=== PATIENT | female | born 1935 | race Caucasian/White ===

== ENCOUNTER → 2016-11-03 | Outpatient (CLI) | payer MEDICARE, OTHER ==
[~2016-11-03] MED LIST: ASCO25TA PO; CHEL50TA PO; CINN500C9 PO; FLON0.054; GLUC500C5 PO; LISI-538 PO; MAGN250T9 PO; MULTCAP PO; OMEG300C3 PO; TRAM50TA2 PO; VITA200016 PO; [UNRECOGNIZED DRUG - CODE] PO
== END ==
LOC: M ADAMS 16:04
PROVIDERS: ATTEND Nurse Practitioner Adult Health
DX: I10 Essential (primary) hypertension (principal); R19.7 Diarrhea, unspecified
CPT/HCPCS: 80053; 82150; 83036; 83690; 85027; 87507; G0463

== ENCOUNTER → 2016-11-03 | Outpatient (REF) | payer MEDICARE, OTHER ==
[2016-11-03 21:08] LABS: MEAN CORPUSCULAR HEMOGLOBIN 30.8 pg (27.0-33.0); MEAN CORPUSCULAR HGB CONC 33.9 g/dl (32.0-36.5); MEAN CORPUSCULAR VOLUME 90.8 fl (80.0-96.0); RED CELL DISTRIBUTION WIDTH 13.8 % (11.5-14.5); WHITE BLOOD COUNT 12.4 K/mm3 (4.0-10.0)
[2016-11-03 21:11] LABS: ALBUMIN 3.3 GM/DL (3.2-5.2); ALBUMIN/GLOBULIN RATIO 0.94 (1.00-1.93); BILIRUBIN,TOTAL 0.3 MG/DL (0.2-1.0); CALCIUM LEVEL 8.5 MG/DL (8.8-10.2); CREATININE FOR GFR 1.09 MG/DL (0.55-1.02); GLOMERULAR FILTRATION RATE 51.5 (>39); POTASSIUM SERUM 3.7 MEQ/L (3.5-5.1); TOTAL PROTEIN 6.8 GM/DL (6.4-8.2)
== END ==
LOC: M SFHCPLAZ 15:46
PROVIDERS: ATTEND Internal Medicine
DX: I10 Essential (primary) hypertension (principal); R19.7 Diarrhea, unspecified; Z79.891 Long term (current) use of opiate analgesic; Z79.899 Other long term (current) drug therapy

== ENCOUNTER → 2017-05-11 | Outpatient (REF) | payer MEDICARE, OTHER ==
[2017-05-11 11:51] LABS: ALBUMIN 3.8 GM/DL (3.2-5.2); ALBUMIN/GLOBULIN RATIO 1.03 (1.00-1.93); BILIRUBIN,TOTAL 0.5 MG/DL (0.2-1.0); CALCIUM LEVEL 9.7 MG/DL (8.8-10.2); CREATININE FOR GFR 1.11 MG/DL (0.55-1.02); GLOMERULAR FILTRATION RATE 50.3 (>32); POTASSIUM SERUM 4.3 MEQ/L (3.5-5.1); TOTAL PROTEIN 7.5 GM/DL (6.4-8.2)
== END ==
LOC: M SFHCPLAZ 08:27
PROVIDERS: ATTEND Internal Medicine
DX: I10 Essential (primary) hypertension (principal); R73.01 Impaired fasting glucose

== ENCOUNTER → 2017-11-19 | Outpatient (REF) | payer MEDICARE, OTHER ==
[2017-11-19 13:29] LABS: ALBUMIN 3.7 GM/DL (3.2-5.2); ALBUMIN/GLOBULIN RATIO 1.03 (1.00-1.93); ALKALINE PHOSPHATASE 55 U/L (45-117); ALT/SGPT 15 U/L (12-78); ANION GAP 8 MEQ/L (8-16); AST/SGOT 6 U/L (7-37); BILIRUBIN,TOTAL 0.4 MG/DL (0.2-1.0); BLOOD UREA NITROGEN 24 MG/DL (7-18); CALCIUM LEVEL 8.9 MG/DL (8.8-10.2); CARBON DIOXIDE LEVEL 27 MEQ/L (21-32); CHLORIDE LEVEL 108 MEQ/L (98-107); CREATININE FOR GFR 1.08 MG/DL (0.55-1.30); GLUCOSE, FASTING 90 MG/DL (70-100); MAGNESIUM LEVEL 2.1 MG/DL (1.8-2.4); SODIUM LEVEL 143 MEQ/L (136-145); TOTAL PROTEIN 7.3 GM/DL (6.4-8.2)
== END ==
LOC: M LABDRWAD 12:05
DX: I10 Essential (primary) hypertension (principal); E05.90 Thyrotoxicosis, unspecified without thyrotoxic crisis or storm
CPT/HCPCS: 83735

== ENCOUNTER → 2018-05-20 | Outpatient (REF) | payer MEDICARE, OTHER ==
[2018-05-20 13:48] LABS: ALBUMIN 3.9 GM/DL (3.2-5.2); ALBUMIN/GLOBULIN RATIO 1.08 (1.00-1.93); ALKALINE PHOSPHATASE 50 U/L (45-117); ALT/SGPT 18 U/L (12-78); ANION GAP 11 MEQ/L (8-16); AST/SGOT 7 U/L (7-37); BILIRUBIN,TOTAL 0.3 MG/DL (0.2-1.0); BLOOD UREA NITROGEN 23 MG/DL (7-18); CALCIUM LEVEL 9.6 MG/DL (8.8-10.2); CARBON DIOXIDE LEVEL 25 MEQ/L (21-32); CHLORIDE LEVEL 106 MEQ/L (98-107); CREATININE FOR GFR 1.02 MG/DL (0.55-1.30); GLOMERULAR FILTRATION RATE 55.4 (>32); GLUCOSE, FASTING 84 MG/DL (70-100); MAGNESIUM LEVEL 2.3 MG/DL (1.8-2.4); POTASSIUM SERUM 4.2 MEQ/L (3.5-5.1); SODIUM LEVEL 142 MEQ/L (136-145); TOTAL PROTEIN 7.5 GM/DL (6.4-8.2)
[2018-05-20 13:53] LABS: TOTAL 25(OH) VITAMIN D 35.8 NG/ML (30.0-100.0)
[2018-05-20 14:15] LABS: CHOLESTEROL LEVEL 177 MG/DL (<200); CHOLESTEROL RISK RATIO 2.765 (<5); HDL CHOLESTEROL 64 MG/DL (>40); LDL CHOLESTEROL 85 MG/DL (<100); NON-HDL-C 113 MG/DL; TRIGLYCERIDES LEVEL 142 MG/DL (<150)
[2018-05-20 15:32] LABS: ESTIMATED AVERAGE GLUCOSE 114 MG/DL (60-110); HEMOGLOBIN A1c 5.6 %
== END ==
LOC: M SFHCPLAZ 10:16
DX: R73.01 Impaired fasting glucose (principal); I10 Essential (primary) hypertension; M81.0 Age-related osteoporosis without current pathological fracture
CPT/HCPCS: 83735

== ENCOUNTER → 2019-02-15 | Outpatient (REF) | payer MEDICARE, OTHER ==
[~2019-02-15] MED LIST changes: +ANAS1TAB2 PO; +ARIP1TAB4 PO; -ASCO25TA PO; +CHLO125TA PO; +CHLO25TA PO; +CITA20TA7 PO; +FLON1SPR NARES; +FLUT44IN INH; +FOSA70TA PO; +OYST500T7 PO; +VITA-193 PO; +VITA1TAB23 PO; -[UNRECOGNIZED DRUG - CODE] PO
[2019-02-15 10:52] LABS: HEMATOCRIT 37.8 % (36.0-47.0); HEMOGLOBIN 12.5 g/dl (12.0-15.5); MEAN CORPUSCULAR HEMOGLOBIN 31.3 pg (27.0-33.0); MEAN CORPUSCULAR HGB CONC 33.1 g/dl (32.0-36.5); MEAN CORPUSCULAR VOLUME 94.7 fl (80.0-96.0); PLATELET COUNT, AUTOMATED 230 10^3/uL (150-450); RED BLOOD COUNT 3.99 10^6/uL (4.00-5.40); WHITE BLOOD COUNT 5.9 10^3/uL (4.0-10.0)
[2019-02-15 11:27] LABS: ALBUMIN 3.6 GM/DL (3.2-5.2); BILIRUBIN,TOTAL 0.4 MG/DL (0.2-1.0); CHOLESTEROL RISK RATIO 2.619 (<5); CREATININE FOR GFR 1.12 MG/DL (0.55-1.30); GLOMERULAR FILTRATION RATE 49.6 (>32); MAGNESIUM LEVEL 1.8 MG/DL (1.8-2.4); POTASSIUM SERUM 4.3 MEQ/L (3.5-5.1); THYROID STIMULATING HORMONE 2.22 uIU/ML (0.358-3.740); TOTAL PROTEIN 6.9 GM/DL (6.4-8.2)
[2019-02-15 11:35] LABS: HEMOGLOBIN A1c 6.1 %
== END ==
LOC: M SFHCPLAZ 08:00
PROVIDERS: ATTEND Internal Medicine
DX: G47.30 Sleep apnea, unspecified (principal); I10 Essential (primary) hypertension; R73.01 Impaired fasting glucose; Z86.39 Personal history of other endocrine, nutritional and metabolic disease

== ENCOUNTER → 2019-08-30 | Outpatient (REF) | payer MEDICARE, OTHER ==
[~2019-08-30] MED LIST changes: +CYAN500T9 PO; -VITA-193 PO
[2019-08-30 12:18] LABS: ALBUMIN 3.7 GM/DL (3.2-5.2); BILIRUBIN,TOTAL 0.5 MG/DL (0.2-1.0); CALCIUM LEVEL 9.8 MG/DL (8.8-10.2); CREATININE FOR GFR 1.08 MG/DL (0.55-1.30); GLOMERULAR FILTRATION RATE 51.7 (>32); MAGNESIUM LEVEL 1.8 MG/DL (1.8-2.4); POTASSIUM SERUM 4.3 MEQ/L (3.5-5.1); TOTAL PROTEIN 7.3 GM/DL (6.4-8.2)
[2019-08-30 12:25] LABS: MALB URINE SIEMENS 29.3 MG/L; MAU/CREAT RATIO 26.6 MCG/MG (0.0-30.0)
[2019-08-30 12:27] LABS: HEMOGLOBIN A1c 6.1 %
== END ==
LOC: M SFHCPLAZ 10:03
PROVIDERS: ATTEND Internal Medicine
DX: I10 Essential (primary) hypertension (principal); R73.01 Impaired fasting glucose
CPT/HCPCS: 36415; 80053; 82043; 83036; 83735; G0463

== ENCOUNTER → 2020-03-12 | Outpatient (REF) | payer MEDICARE, OTHER ==
[~2020-03-12] MED LIST changes: +CINN500C12 PO; +CYAN500T10 PO; -CYAN500T9 PO; +OMEG1CAP12 PO; -OYST500T7 PO; +OYST500T8 PO; -VITA1TAB23 PO; +VITA250T20 PO; +[UNRECOGNIZED DRUG - CODE] PO
[2020-03-12 14:21] LABS: HEMOGLOBIN 12.3 g/dl (12.0-15.5); MEAN CORPUSCULAR HEMOGLOBIN 30.3 pg (27.0-33.0); MEAN CORPUSCULAR HGB CONC 32.4 g/dl (32.0-36.5); MEAN CORPUSCULAR VOLUME 93.6 fl (80.0-96.0); PLATELET COUNT, AUTOMATED 259 10^3/uL (150-450); RED BLOOD COUNT 4.06 10^6/uL (4.00-5.40); WHITE BLOOD COUNT 6.4 10^3/uL (4.0-10.0)
[2020-03-12 14:57] LABS: ALBUMIN 3.6 GM/DL (3.2-5.2); BILIRUBIN,TOTAL 0.4 MG/DL (0.2-1.0); CALCIUM LEVEL 9.3 MG/DL (8.8-10.2); CHOLESTEROL RISK RATIO 2.721 (<5); CREATININE FOR GFR 1.05 MG/DL (0.55-1.30); GLOMERULAR FILTRATION RATE 53.3 (>32); MAGNESIUM LEVEL 1.8 MG/DL (1.8-2.4); POTASSIUM SERUM 4.4 MEQ/L (3.5-5.1); THYROID STIMULATING HORMONE 2.23 uIU/ML (0.358-3.740); TOTAL 25(OH) VITAMIN D 34.6 NG/ML (30.0-100.0)
== END ==
LOC: M SFHCPLAZ 11:09
PROVIDERS: ATTEND Internal Medicine
DX: I10 Essential (primary) hypertension (principal); R73.01 Impaired fasting glucose; M81.0 Age-related osteoporosis without current pathological fracture; Z85.3 Personal history of malignant neoplasm of breast; Z86.39 Personal history of other endocrine, nutritional and metabolic disease
CPT/HCPCS: 36415; 80053; 80061; 82306; 83036; 83735; 84443; 85027; G0463

== ENCOUNTER → 2020-09-26 | Outpatient (REF) | payer MEDICARE, OTHER ==
[~2020-09-26] MED LIST changes: -CYAN500T10 PO; +VITA500T37 PO
[2020-09-26 17:52] LABS: ALBUMIN 3.6 GM/DL (3.2-5.2); BILIRUBIN,TOTAL 0.3 MG/DL (0.2-1.0); CALCIUM LEVEL 10.1 MG/DL (8.8-10.2); CREATININE FOR GFR 1.2 MG/DL (0.55-1.30); GLOMERULAR FILTRATION RATE 45.7 (>32); MAGNESIUM LEVEL 1.9 MG/DL (1.8-2.4); POTASSIUM SERUM 4.5 MEQ/L (3.5-5.1)
[2020-09-26 18:34] LABS: HEMOGLOBIN A1c 5.7 %
== END ==
LOC: M SFHCPLAZ 15:21
PROVIDERS: ATTEND Internal Medicine
DX: R73.01 Impaired fasting glucose (principal); I10 Essential (primary) hypertension
CPT/HCPCS: 36415; 80053; 83036; 83735; 86803; G0463

== ENCOUNTER → 2020-11-06 | Outpatient (REF) | payer MEDICARE, OTHER ==
[~2020-11-06] MED LIST changes: -LISI-538 PO; +LISI20TA33 PO
== END ==
LOC: M SFHCPLAZ 10:32
PROVIDERS: ATTEND Internal Medicine
DX: H05.20 Unspecified exophthalmos (principal)

== ENCOUNTER → 2021-02-04 | Outpatient (CLI) | payer MEDICARE, OTHER ==
[~2021-02-04] MED LIST changes: +CALCCAP4 PO; +CHEL50TA2 PO; +MULT-90 PO; +PURE500C5 PO
--- NOTE | 2021-02-04 14:28 | REPMRS ---
Patient History The patient states she had a clinical breast exam in October 2020. Family history of colorectal cancer at age 70 in mother. Malignant radio exam breast specimen of both breasts, May 11, 2014. 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 High risk stereotatic loc for ea lesion of the left breast, March 30, 2014. Pfizer vaccine 08/2020 left arm. 10/2020 left arm, pt unable to remember exact dates. Patient states no breast complaints today. Patient has signed MRS History Sheet. Digital Woman Screen Mammo: February 04, 2021 - Exam #: [id number] Bilateral CC and MLO view(s) were taken. Technologist: RT Dione Prior study comparison: March 07, 2014, left breast digital mammo diagnostic unilateral, performed at [facility]. January 26, 2014, bilateral digital woman screen mammo, performed at [facility]. FINDINGS: There are scattered fibroglandular densities. Screening. This patient?s lifetime risk for the development of invasive breast cancer can?t be calculated due to her age (less than 20 or greater than 85 years) or a prior history of in situ or invasive breast cancer. Digital screening (2D) mammography was performed bilaterally. Additionally, breast tomosynthesis (3D mammography) was performed bilaterally in the CC and MLO projections. Today's exam was compared to the prior exam/exams. By history, the patient has no complaints of a palpable breast abnormality or other significant breast complaints. 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 The breasts are unchanged in size and shape. There are no princess-areas of internal architectural distortion. There are no princess-soft tissue densities or areas of spiculation. There is unchanged post radiation skin thickening. Once again, stable benign appearing calcifications are seen. IMPRESSION: BI-RADS Category 2- Benign Findings. There is no evidence of malignant alteration of the breasts. Routine bilateral screening mammogram recommended at its regularly scheduled annual interval. The Volpara volumetric breast density category is B, there are scattered areas of fibroglandular density. This mammogram was read with the assistance of [employer],an FDA approved computer aided detection system for mammography. Negative x-ray reports should not delay surgical consultation if a dominant or clinically suspicious mass is present. Not all breast cancers can be identified by mammography. Therefore, we recommend that you continue to perform regular breast self-examination and physical examination and then promptly contact your physician of any concerns or changes. Adenosis and dense breasts may obscure an underlying neoplasm. Assessment: BI-RADS/ACR category 2 mammogram. Benign Findings. Recommendation Routine screening mammogram of both breasts in 1 year. Electronically Signed By: Ray Hernandez DO 02/04/21 [id number]
== END ==
LOC: M WHC 12:46
PROVIDERS: ATTEND Internal Medicine Medical Oncology
DX: Z12.31 Encounter for screening mammogram for malignant neoplasm of breast (principal); N64.89 Other specified disorders of breast; Z85.3 Personal history of malignant neoplasm of breast; Z80.0 Family history of malignant neoplasm of digestive organs

== ENCOUNTER → 2021-03-26 | Outpatient (REF) | payer MEDICARE, OTHER | LOC: M SFHCPLAZ 15:43 | PROVIDERS: ATTEND Internal Medicine | DX: Z53.9 Procedure and treatment not carried out, unspecified reason (principal) ==

== ENCOUNTER → 2021-03-27 | Outpatient (CLI) | payer MEDICARE, OTHER ==
[2021-03-27 11:20] LABS: HEMOGLOBIN A1c 5.7 %
[2021-03-27 11:25] LABS: ALBUMIN 3.8 GM/DL (3.2-5.2); BILIRUBIN,TOTAL 0.4 MG/DL (0.2-1.0); CALCIUM LEVEL 9.2 MG/DL (8.8-10.2); CHOLESTEROL RISK RATIO 2.983 (<5); CREATININE FOR GFR 1.14 MG/DL (0.55-1.30); GLOMERULAR FILTRATION RATE 48.3 (>32); MAGNESIUM LEVEL 1.8 MG/DL (1.8-2.4); POTASSIUM SERUM 4.8 MEQ/L (3.5-5.1); THYROID STIMULATING HORMONE 1.7 uIU/ML (0.358-3.740); TOTAL PROTEIN 6.8 GM/DL (6.4-8.2)
[2021-03-27 11:32] LABS: MALB URINE SIEMENS 33.4 MG/L; MAU/CREAT RATIO 21.5 MCG/MG (0.0-30.0)
== END ==
LOC: M PLALAB 08:42
PROVIDERS: ATTEND Internal Medicine
DX: R73.01 Impaired fasting glucose (principal); I10 Essential (primary) hypertension; Z86.39 Personal history of other endocrine, nutritional and metabolic disease

== ENCOUNTER → 2021-09-20 | Outpatient (CLI) | payer MEDICARE, OTHER ==
[2021-09-20 10:43] LABS: BASO % 0.7 % (0.0-1.0); EOS # 0.3 10^3/uL (0.0-0.5); EOS % 5.1 % (0.0-3.0); HEMATOCRIT 38.6 % (36.0-47.0); HEMOGLOBIN 12.3 g/dl (12.0-15.5); LYMPH # 1.7 10^3/uL (1.5-5.0); LYMPH % 28.5 % (24.0-44.0); MEAN CORPUSCULAR HEMOGLOBIN 30.2 pg (27.0-33.0); MEAN CORPUSCULAR HGB CONC 31.9 g/dl (32.0-36.5); MEAN CORPUSCULAR VOLUME 94.8 fl (80.0-96.0); MONO # 0.5 10^3/uL (0.0-0.8); MONO % 7.8 % (2.0-8.0); NEUTROPHILS # 3.4 10^3/uL (1.5-8.5); NEUTROPHILS % 57.6 % (36.0-66.0); PLATELET COUNT, AUTOMATED 250 10^3/uL (150-450); RED BLOOD COUNT 4.07 10^6/uL (4.00-5.40); WHITE BLOOD COUNT 5.9 10^3/uL (4.0-10.0)
[2021-09-20 11:02] LABS: HEMOGLOBIN A1c 5.6 %
[2021-09-20 11:15] LABS: ALBUMIN 3.6 GM/DL (3.2-5.2); BILIRUBIN,TOTAL 0.4 MG/DL (0.2-1.0); CALCIUM LEVEL 9.5 MG/DL (8.8-10.2); CREATININE FOR GFR 1.15 MG/DL (0.55-1.30); GLOMERULAR FILTRATION RATE 47.9 (>32); POTASSIUM SERUM 4.7 MEQ/L (3.5-5.1); TOTAL PROTEIN 6.8 GM/DL (6.4-8.2)
== END ==
LOC: M PLALAB 09:15
PROVIDERS: ATTEND Internal Medicine
DX: R73.01 Impaired fasting glucose (principal); I10 Essential (primary) hypertension; Z85.3 Personal history of malignant neoplasm of breast

== ENCOUNTER → 2022-02-07 | Outpatient (CLI) | payer MEDICARE, OTHER ==
[~2022-02-07] MED LIST changes: +KRIL300C2 PO; +LUTE40CA2 PO; +VITA500C24 PO; +[UNRECOGNIZED DRUG - CODE] PO; -[UNRECOGNIZED DRUG - CODE] PO
== END ==
LOC: M WHC 10:23
PROVIDERS: ATTEND Internal Medicine
DX: M81.0 Age-related osteoporosis without current pathological fracture (principal); Z12.31 Encounter for screening mammogram for malignant neoplasm of breast; Z85.3 Personal history of malignant neoplasm of breast

== ENCOUNTER → 2022-02-07 | Outpatient (CLI) | payer MEDICARE, OTHER | LOC: M WHC 10:27 | PROVIDERS: ATTEND Internal Medicine Medical Oncology | DX: Z12.31 Encounter for screening mammogram for malignant neoplasm of breast (principal); Z85.3 Personal history of malignant neoplasm of breast ==

== ENCOUNTER → 2022-03-10 | Outpatient (CLI) | payer MEDICARE, OTHER ==
[2022-03-10 13:09] LABS: BASO % 0.5 % (0.0-1.0); EOS # 0.3 10^3/uL (0.0-0.5); EOS % 4.7 % (0.0-3.0); HEMATOCRIT 39.6 % (36.0-47.0); HEMOGLOBIN 12.7 g/dl (12.0-15.5); LYMPH # 1.7 10^3/uL (1.5-5.0); LYMPH % 27.9 % (24.0-44.0); MEAN CORPUSCULAR HEMOGLOBIN 30.2 pg (27.0-33.0); MEAN CORPUSCULAR HGB CONC 32.1 g/dl (32.0-36.5); MEAN CORPUSCULAR VOLUME 94.1 fl (80.0-96.0); MONO # 0.5 10^3/uL (0.0-0.8); MONO % 7.7 % (2.0-8.0); NEUTROPHILS # 3.6 10^3/uL (1.5-8.5); NEUTROPHILS % 58.9 % (36.0-66.0); PLATELET COUNT, AUTOMATED 242 10^3/uL (150-450); RED BLOOD COUNT 4.21 10^6/uL (4.00-5.40); WHITE BLOOD COUNT 6.1 10^3/uL (4.0-10.0)
[2022-03-10 16:43] LABS: ALBUMIN 3.6 GM/DL (3.2-5.2); BILIRUBIN,TOTAL 0.4 MG/DL (0.2-1.0); CALCIUM LEVEL 9.4 MG/DL (8.8-10.2); CHOLESTEROL RISK RATIO 3.259 (<5); CREATININE FOR GFR 1.15 MG/DL (0.55-1.30); GLOMERULAR FILTRATION RATE 47.7 (>32); POTASSIUM SERUM 4.7 MEQ/L (3.5-5.1); THYROID STIMULATING HORMONE 1.76 uIU/ML (0.358-3.740); TOTAL 25(OH) VITAMIN D 47.3 NG/ML (30.0-100.0); TOTAL PROTEIN 6.6 GM/DL (6.4-8.2)
[2022-03-11 00:50] LABS: HEMOGLOBIN A1c 5.9 %
== END ==
LOC: M PLALAB 09:03
PROVIDERS: ATTEND Internal Medicine
DX: I10 Essential (primary) hypertension (principal); Z86.39 Personal history of other endocrine, nutritional and metabolic disease; R73.01 Impaired fasting glucose; G47.30 Sleep apnea, unspecified; M81.0 Age-related osteoporosis without current pathological fracture

== ENCOUNTER → 2023-02-09 | Outpatient (CLI) | payer MEDICARE, OTHER ==
[~2023-02-09] MED LIST changes: +ALEN70TA87 PO; +ASCO500C3 PO; -FOSA70TA PO; -PURE500C5 PO
== END ==
LOC: M WHC 10:36
PROVIDERS: ATTEND Internal Medicine Hematology & Oncology
DX: Z85.3 Personal history of malignant neoplasm of breast (principal); Z12.31 Encounter for screening mammogram for malignant neoplasm of breast

== ENCOUNTER → 2023-03-16 | Outpatient (CLI) | payer MEDICARE, OTHER ==
[2023-03-16 11:54] LABS: ALBUMIN 3.6 G/DL (3.2-5.2); ALKALINE PHOSPHATASE 52 U/L (46-116); ALT/SGPT 9 U/L (7.0-40); AST/SGOT < 8 U/L (<34); BILIRUBIN,TOTAL 0.6 MG/DL (0.3-1.2); BLOOD UREA NITROGEN 24 MG/DL (9-23); CALCIUM LEVEL 9.7 MG/DL (8.3-10.6); CARBON DIOXIDE LEVEL 26 MMOL/L (20-31); CHLORIDE LEVEL 105 MMOL/L (98-107); CHOLESTEROL LEVEL 168 MG/DL (<200); CHOLESTEROL RISK RATIO 2.88 (<5); GLOMERULAR FILTRATION RATE 50.1 (>32); GLUCOSE, FASTING 103 MG/DL (74-106); HDL CHOLESTEROL 58.3 MG/DL (>40); LDL CHOLESTEROL 84.9 MG/DL (<100); NON-HDL-C 109.7 MG/DL; POTASSIUM SERUM 4.5 MMOL/L (3.5-5.1); SODIUM LEVEL 140 MMOL/L (136-145); THYROID STIMULATING HORMONE 2.152 uIU/ML (0.55-4.78); TOTAL 25(OH) VITAMIN D 46.3 NG/ML (20.0-100.0); TOTAL PROTEIN 6.6 G/DL (5.7-8.2); TRIGLYCERIDES LEVEL 124 MG/DL (<150)
[2023-03-16 12:05] LABS: HEMOGLOBIN A1c 5.8 % (4.0-6.0)
== END ==
LOC: M PLALAB 07:27
PROVIDERS: ATTEND Nurse Practitioner Adult Health
DX: I10 Essential (primary) hypertension (principal); R73.01 Impaired fasting glucose; Z86.39 Personal history of other endocrine, nutritional and metabolic disease; M81.0 Age-related osteoporosis without current pathological fracture

== ENCOUNTER 2023-09-02 10:55 | Inpatient (IN) | payer MEDICARE, OTHER ==
[~2023-09-02] VITALS: Ht 157.5 cm; Wt 82.9 kg
[2023-09-02 11:32] LABS: BASO # 0.1 10^3/uL (0.0-0.2); BASO % 0.6 % (0.0-1.0); EOS # 0.3 10^3/uL (0.0-0.5); EOS % 3.2 % (0.0-3.0); HEMATOCRIT 41.1 % (36.0-47.0); HEMOGLOBIN 13.6 g/dl (12.0-15.5); LYMPH # 1.5 10^3/uL (1.5-5.0); LYMPH % 18.1 % (24.0-44.0); MEAN CORPUSCULAR HEMOGLOBIN 31.3 pg (27.0-33.0); MEAN CORPUSCULAR HGB CONC 33.1 g/dl (32.0-36.5); MEAN CORPUSCULAR VOLUME 94.7 fl (80.0-96.0); MONO # 0.5 10^3/uL (0.0-0.8); MONO % 5.7 % (2.0-8.0); NEUTROPHILS # 5.9 10^3/uL (1.5-8.5); NEUTROPHILS % 71.8 % (36.0-66.0); PLATELET COUNT, AUTOMATED 236 10^3/uL (150-450); RED BLOOD COUNT 4.34 10^6/uL (4.00-5.40); WHITE BLOOD COUNT 8.2 10^3/uL (4.0-10.0)
[2023-09-02 12:05] LABS: ETHYL ALCOHOL (ETHANOL) < 0.003 % (0.000-0.010)
[2023-09-02 12:06] LABS: SALICYLATE LEVEL < 3.0 MG/DL (<30)
[2023-09-02 12:07] LABS: ALBUMIN 3.8 G/DL (3.2-5.2); ALKALINE PHOSPHATASE 57 U/L (46-116); ALT/SGPT 11 U/L (7.0-40); AST/SGOT < 8 U/L (<34); BILIRUBIN,DIRECT 0.2 MG/DL (<0.4); BILIRUBIN,TOTAL 0.6 MG/DL (0.3-1.2); BLOOD UREA NITROGEN 32 MG/DL (9-23); CALCIUM LEVEL 9.5 MG/DL (8.3-10.6); CARBON DIOXIDE LEVEL 28 MMOL/L (20-31); CHLORIDE LEVEL 104 MMOL/L (98-107); CREATININE FOR GFR 1.22 MG/DL (0.55-1.30); GLOMERULAR FILTRATION RATE 44.5 (>32); GLUCOSE, FASTING 129 MG/DL (74-106); SODIUM LEVEL 139 MMOL/L (136-145); TOTAL PROTEIN 7.3 G/DL (5.7-8.2)
[2023-09-02 12:09] LABS: THYROID STIMULATING HORMONE 2.306 uIU/ML (0.55-4.78)
[2023-09-02 12:13] LABS: RSV AMPLIFICATION NEGATIVE (NEGATIVE)
[2023-09-02] MEDS ORDERED: MED REC IN PROGRESS XX SCH (12:45)
[2023-09-02] MEDS ORDERED: ISOVUE-370 76% 100ML VIAL As Ordered ONE (12:50)
[2023-09-02 13:03] LABS: CK-MB VALUE MASS < 1.0 NG/ML (<3.6)
[2023-09-02 13:05] LABS: CPK CREATINE PHOSPHOKINASE 36 U/L (34-145); MB/CK RELATIVE INDEX 2.77 (< OR =4)
[2023-09-02] MEDS ORDERED: LEVO5OPD OD (14:14)
[2023-09-02] MEDS ORDERED: HOME MED LIST COMPLETE! XX SCH (14:20)
[2023-09-02] MEDS ORDERED: CHLORTHALIDONE 25 MG TAB PO SCH (16:45)
[2023-09-02] MEDS ORDERED: MOM 30ML SUSPENSION UDC PO PRN (16:45)
[2023-09-02 18:43] LABS: INR 1.15; PROTHROMBIN TIME 14.4 SECONDS (12.5-14.5)
[2023-09-02 18:47] VITALS: BP 210/70; TEMP 98.6; O2SAT 96
[2023-09-02 19:07] LABS: CHOLESTEROL LEVEL 198 MG/DL (<200); CHOLESTEROL RISK RATIO 3.39 (<5); HDL CHOLESTEROL 58.4 MG/DL (>40); LDL CHOLESTEROL 109.6 MG/DL (<100); NON-HDL-C 139.6 MG/DL; TRIGLYCERIDES LEVEL 150 MG/DL (<150)
[2023-09-02 19:18] LABS: PROCALCITONIN <0.04 ng/ml
[2023-09-02 19:30] VITALS: BP 198/70; TEMP 97.6; O2SAT 95
[2023-09-02] MEDS ORDERED: CAPTOpril 6.25 MG PER 1/2 TABLET PO ONE (20:00)
[2023-09-02] MEDS: DOCUSATE SODIUM 100MG CAPSULE PO SCH (20:33)
[2023-09-02] MEDS: CHLORTHALIDONE 25 MG TAB PO SCH (20:33)
[2023-09-02 21:01] LABS: HEMOGLOBIN A1c 5.8 % (4.0-6.0)
[2023-09-02 21:12] VITALS: BP 170/66
[2023-09-02] MEDS ORDERED: CAPTOpril 6.25 MG PER 1/2 TABLET PO SCH (22:00)
[2023-09-02 23:13] VITALS: BP 171/74; TEMP 98.7; O2SAT 95
[2023-09-02] MEDS: ACETAMINOPHEN TAB 650MG DOSE (2X325MG) PO PRN (23:33)
[2023-09-03] VITALS (8 sets, daily range): BP systolic 135–178; BP diastolic 61–80; TEMP 97.6–98.4; O2SAT 94–96
[2023-09-03] MEDS: UNRESOLVED PATIENT OWN MED ORDER XX SCH (00:01)
[2023-09-03] MEDS ORDERED: CAPTOpril 6.25 MG PER 1/2 TABLET PO SCH (03:00)
[2023-09-03] MEDS: ACETAMINOPHEN TAB 650MG DOSE (2X325MG) PO PRN (03:45)
[2023-09-03 06:13] LABS: HEMATOCRIT 35.9 % (36.0-47.0); HEMOGLOBIN 12.1 g/dl (12.0-15.5); MEAN CORPUSCULAR HGB CONC 33.7 g/dl (32.0-36.5); MEAN CORPUSCULAR VOLUME 92.1 fl (80.0-96.0); PLATELET COUNT, AUTOMATED 216 10^3/uL (150-450); WHITE BLOOD COUNT 9.1 10^3/uL (4.0-10.0)
[2023-09-03 06:48] LABS: CALCIUM LEVEL 9.3 MG/DL (8.3-10.6); CREATININE FOR GFR 1.18 MG/DL (0.55-1.30); GLOMERULAR FILTRATION RATE 46.2 (>32)
[2023-09-03] MEDS: ASCORBIC ACID 500 MG TAB PO SCH (09:20)
[2023-09-03] MEDS: DOCUSATE SODIUM 100MG CAPSULE PO SCH ×2 (09:20→20:01)
[2023-09-03] MEDS: CitaloPRAM (CeleXA) 20 MG TAB PO SCH (09:20)
[2023-09-03] MEDS: CALCIUM/VITAMIN D 500 MG TAB PO SCH (09:20)
[2023-09-03] MEDS: CYANOCOBALAMIN 500 MCG TAB PO SCH (09:20)
[2023-09-03] MEDS: FLUTICASONE PROP 0.05% NASAL SPRAY 16 GM (FLONASE) NARES SCH (09:20)
[2023-09-03] MEDS: ENOXAPARIN 40MG/0.4ML SYRINGE (J1650 PER 10MG) SC SCH (09:21)
[2023-09-03] MEDS: CHLORTHALIDONE 25 MG TAB PO SCH (20:01)
[2023-09-04] VITALS: BP 160/75; TEMP 97.5; O2SAT 97
[2023-09-04] MEDS: UNRESOLVED PATIENT OWN MED ORDER XX SCH ×2 (00:01→21:06)
[2023-09-04 04:00] VITALS: BP 160/70; TEMP 98.9; O2SAT 96
[2023-09-04] MEDS: ACETAMINOPHEN TAB 650MG DOSE (2X325MG) PO PRN (04:54)
[2023-09-04 08:45] VITALS: BP_SYST 144; BP_SYST 160; BP_SYST 168; BP_DIAS 65; BP_DIAS 70; BP_DIAS 73
[2023-09-04] MEDS: DOCUSATE SODIUM 100MG CAPSULE PO SCH ×3 (09:00→20:45)
[2023-09-04] MEDS: ENOXAPARIN 40MG/0.4ML SYRINGE (J1650 PER 10MG) SC SCH (09:26)
[2023-09-04] MEDS: lisinopriL 40MG TAB PO SCH (09:26)
[2023-09-04] MEDS: CALCIUM/VITAMIN D 500 MG TAB PO SCH (09:26)
[2023-09-04] MEDS: CitaloPRAM (CeleXA) 20 MG TAB PO SCH (09:26)
[2023-09-04] MEDS: ASCORBIC ACID 500 MG TAB PO SCH (09:26)
[2023-09-04] MEDS: CYANOCOBALAMIN 500 MCG TAB PO SCH (09:26)
[2023-09-04] MEDS: FLUTICASONE PROP 0.05% NASAL SPRAY 16 GM (FLONASE) NARES SCH (09:27)
[2023-09-04 13:15] VITALS: BP 157/69; TEMP 97.9; O2SAT 99
[2023-09-04 16:40] VITALS: BP 167/77; TEMP 98.8; O2SAT 97
[2023-09-04] MEDS: CHLORTHALIDONE 25 MG TAB PO SCH (20:55)
[2023-09-04 21:00] VITALS: BP 134/64; TEMP 98.6; O2SAT 96
[2023-09-05 06:00] VITALS: BP 150/69; TEMP 98.1; O2SAT 97
[2023-09-05] MEDS: CitaloPRAM (CeleXA) 20 MG TAB PO SCH (08:09)
[2023-09-05] MEDS: ASCORBIC ACID 500 MG TAB PO SCH (08:09)
[2023-09-05] MEDS: DOCUSATE SODIUM 100MG CAPSULE PO SCH ×2 (08:09→21:15)
[2023-09-05] MEDS: CYANOCOBALAMIN 500 MCG TAB PO SCH (08:10)
[2023-09-05] MEDS: CALCIUM/VITAMIN D 500 MG TAB PO SCH (08:10)
[2023-09-05] MEDS: ENOXAPARIN 40MG/0.4ML SYRINGE (J1650 PER 10MG) SC SCH (08:10)
[2023-09-05] MEDS: lisinopriL 40MG TAB PO SCH (08:11)
[2023-09-05] MEDS: FLUTICASONE PROP 0.05% NASAL SPRAY 16 GM (FLONASE) NARES SCH (08:44)
[2023-09-05 14:20] VITALS: BP 132/67; TEMP 98.1; O2SAT 96
[2023-09-05] MEDS: CHLORTHALIDONE 25 MG TAB PO SCH (21:15)
[2023-09-05] MEDS: ACETAMINOPHEN TAB 650MG DOSE (2X325MG) PO PRN (21:16)
[2023-09-06] MEDS: UNRESOLVED PATIENT OWN MED ORDER XX SCH (00:01)
[2023-09-06 06:00] VITALS: BP 139/67; TEMP 98.1; O2SAT 97
[2023-09-06] MEDS: ASCORBIC ACID 500 MG TAB PO SCH (08:36)
[2023-09-06] MEDS: CYANOCOBALAMIN 500 MCG TAB PO SCH (08:37)
[2023-09-06] MEDS: CitaloPRAM (CeleXA) 20 MG TAB PO SCH (08:37)
[2023-09-06] MEDS: lisinopriL 40MG TAB PO SCH (08:37)
[2023-09-06] MEDS: DOCUSATE SODIUM 100MG CAPSULE PO SCH (08:38)
[2023-09-06] MEDS: CALCIUM/VITAMIN D 500 MG TAB PO SCH (08:38)
[2023-09-06] MEDS: FLUTICASONE PROP 0.05% NASAL SPRAY 16 GM (FLONASE) NARES SCH (08:38)
[2023-09-06] MEDS: ENOXAPARIN 40MG/0.4ML SYRINGE (J1650 PER 10MG) SC SCH (08:38)
[2023-09-06 10:57] VITALS: TEMP 98.1; O2SAT 97
[2023-09-06] MEDS ORDERED: DOCUSATE SODIUM 100MG CAPSULE PO PRN (12:35)
[2023-09-06] MEDS: CHLORTHALIDONE 25 MG TAB PO SCH (21:00)
[2023-09-06] MEDS: LEVOBUNOLOL 0.5% OD SCH (21:01)
[2023-09-07] MEDS: UNRESOLVED PATIENT OWN MED ORDER XX SCH (00:01)
[2023-09-07 06:00] VITALS: BP 143/64; TEMP 97.7; O2SAT 98
[2023-09-07 08:35] VITALS: BP 157/56
[2023-09-07] MEDS: lisinopriL 40MG TAB PO SCH (08:40)
[2023-09-07] MEDS: ASCORBIC ACID 500 MG TAB PO SCH (08:40)
[2023-09-07] MEDS: CALCIUM/VITAMIN D 500 MG TAB PO SCH (08:40)
[2023-09-07] MEDS: CitaloPRAM (CeleXA) 20 MG TAB PO SCH (08:40)
[2023-09-07] MEDS: CYANOCOBALAMIN 500 MCG TAB PO SCH (08:40)
[2023-09-07] MEDS: ENOXAPARIN 40MG/0.4ML SYRINGE (J1650 PER 10MG) SC SCH (08:41)
[2023-09-07] MEDS: LEVOBUNOLOL 0.5% OD SCH ×2 (08:41→19:29)
[2023-09-07] MEDS: FLUTICASONE PROP 0.05% NASAL SPRAY 16 GM (FLONASE) NARES SCH (08:41)
[2023-09-07] MEDS: CHLORTHALIDONE 25 MG TAB PO SCH (19:28)
[2023-09-07 20:00] VITALS: BP 150/56
[2023-09-07] MEDS: ACETAMINOPHEN TAB 650MG DOSE (2X325MG) PO PRN (22:40)
[2023-09-08 06:00] VITALS: BP 128/76; TEMP 97.7; O2SAT 95
[2023-09-08] MEDS: CitaloPRAM (CeleXA) 20 MG TAB PO SCH (08:41)
[2023-09-08] MEDS: ENOXAPARIN 40MG/0.4ML SYRINGE (J1650 PER 10MG) SC SCH (08:41)
[2023-09-08 08:42] VITALS: BP 141/76
[2023-09-08] MEDS: lisinopriL 40MG TAB PO SCH (08:42)
[2023-09-08] MEDS: CYANOCOBALAMIN 500 MCG TAB PO SCH (08:42)
[2023-09-08] MEDS: CALCIUM/VITAMIN D 500 MG TAB PO SCH (08:42)
[2023-09-08] MEDS: ASCORBIC ACID 500 MG TAB PO SCH (08:42)
[2023-09-08] MEDS: LEVOBUNOLOL 0.5% OD SCH (08:43)
[2023-09-08] MEDS: FLUTICASONE PROP 0.05% NASAL SPRAY 16 GM (FLONASE) NARES SCH (08:43)
[2023-09-08] MEDS ORDERED: CHLO25TA PO (12:07)
[2023-09-08] MEDS ORDERED: LISI40TA4 PO (12:07)
[2023-09-08] MEDS ORDERED: ACET-897 PO (12:19)
[2023-09-08] MEDS ORDERED: OXYC-517 PO (12:19)
[2023-09-08] MEDS ORDERED: ASPI325T57 PO (12:19)
== END 2023-09-08 14:30 | disposition home or self-care (01) | DRG 312 ==
LOC: M ED 10:55 → EDBD 10:55 → M ED INP 16:45 → ENRESERV 17:05 → M PCU 18:40 → M MS5PR 09-04 17:36
PROVIDERS: ADMIT Student in an Organized Health Care Education/Training Program; ATTEND Student in an Organized Health Care Education/Training Program
DX: I95.1 Orthostatic hypotension (principal); E87.20 Acidosis, unspecified; M80.071A Age-related osteoporosis with current pathological fracture, right ankle and foot, initial encounter for fracture; M81.0 Age-related osteoporosis without current pathological fracture; R55 Syncope and collapse; I10 Essential (primary) hypertension; I65.23 Occlusion and stenosis of bilateral carotid arteries; R00.1 Bradycardia, unspecified; Z79.899 Other long term (current) drug therapy; Z79.82 Long term (current) use of aspirin; E66.9 Obesity, unspecified; G47.33 Obstructive sleep apnea (adult) (pediatric); F32.A Depression, unspecified; Z87.891 Personal history of nicotine dependence; Z85.3 Personal history of malignant neoplasm of breast; Z66 Do not resuscitate

== ENCOUNTER → 2023-09-15 | Outpatient (CLI) | payer MEDICARE ==
[~2023-09-15] MED LIST changes: +ACET-897 PO; +ASPI325T57 PO; +LEVO5OPD OD; +LISI40TA4 PO; +OXYC-517 PO
== END ==
LOC: M SOG 07:56
PROVIDERS: ATTEND Orthopaedic Surgery
DX: S82.444A Nondisplaced spiral fracture of shaft of right fibula, initial encounter for closed fracture (principal); M25.571 Pain in right ankle and joints of right foot; X58.XXXA Exposure to other specified factors, initial encounter; Y92.9 Unspecified place or not applicable

== ENCOUNTER → 2023-09-22 | Outpatient (CLI) | payer MEDICARE, BC | LOC: M SOG 08:01 | PROVIDERS: ATTEND Orthopaedic Surgery | DX: S82.61XA Displaced fracture of lateral malleolus of right fibula, initial encounter for closed fracture (principal) ==

== ENCOUNTER → 2023-10-01 | Outpatient (CLI) | payer MEDICARE | LOC: M SOG 10:01 | PROVIDERS: ATTEND Orthopaedic Surgery | DX: S82.61XD Displaced fracture of lateral malleolus of right fibula, subsequent encounter for closed fracture with routine healing (principal) ==

== ENCOUNTER → 2023-10-06 | Outpatient (CLI) | payer MEDICARE | LOC: M RAD 12:46 | PROVIDERS: ATTEND Nurse Practitioner Adult Health | DX: E04.1 Nontoxic single thyroid nodule (principal) ==

== ENCOUNTER → 2023-10-15 | Outpatient (CLI) | payer MEDICARE | LOC: M SOG 10:57 | PROVIDERS: ATTEND Orthopaedic Surgery | DX: S82.61XD Displaced fracture of lateral malleolus of right fibula, subsequent encounter for closed fracture with routine healing (principal) ==

== ENCOUNTER → 2023-11-13 | Outpatient (CLI) | payer MEDICARE | LOC: M SOG 07:51 | PROVIDERS: ATTEND Orthopaedic Surgery | DX: S82.61XA Displaced fracture of lateral malleolus of right fibula, initial encounter for closed fracture (principal); Y93.9 Activity, unspecified; Y92.9 Unspecified place or not applicable ==

== ENCOUNTER → 2024-02-11 | Outpatient (CLI) | payer BC, MEDICARE, OTHER | LOC: M WHC 11:56 | PROVIDERS: ATTEND Internal Medicine Medical Oncology | DX: Z12.31 Encounter for screening mammogram for malignant neoplasm of breast (principal) ==

== ENCOUNTER → 2024-06-24 | Outpatient (CLI) | payer MEDICARE ==
[2024-06-24 13:40] LABS: HEMATOCRIT 35.7 % (36.0-47.0); HEMOGLOBIN 11.6 g/dl (12.0-15.5); MEAN CORPUSCULAR HEMOGLOBIN 30.8 pg (27.0-33.0); MEAN CORPUSCULAR HGB CONC 32.5 g/dl (32.0-36.5); MEAN CORPUSCULAR VOLUME 94.7 fl (80.0-96.0); PLATELET COUNT, AUTOMATED 220 10^3/uL (150-450); RED BLOOD COUNT 3.77 10^6/uL (4.00-5.40); WHITE BLOOD COUNT 6.1 10^3/uL (4.0-10.0)
[2024-06-24 13:42] LABS: ALBUMIN 3.3 G/DL (3.2-5.2); ALKALINE PHOSPHATASE 49 U/L (35-104); ALT/SGPT 13 U/L (7.0-40); AST/SGOT < 8 U/L (<34); BILIRUBIN,TOTAL 0.6 MG/DL (0.3-1.2); BLOOD UREA NITROGEN 29 MG/DL (9-23); CALCIUM LEVEL 9.9 MG/DL (8.3-10.6); CARBON DIOXIDE LEVEL 27 MMOL/L (20-31); CHLORIDE LEVEL 108 MMOL/L (98-107); CHOLESTEROL LEVEL 172 MG/DL (<200); CHOLESTEROL RISK RATIO 3.36 (<5); CREATININE FOR GFR 1.32 MG/DL (0.55-1.30); GLOMERULAR FILTRATION RATE 40.5 (>32); GLUCOSE, FASTING 108 MG/DL (74-106); HDL CHOLESTEROL 51.1 MG/DL (>40); LDL CHOLESTEROL 87.7 MG/DL (<100); MAGNESIUM LEVEL 1.8 MG/DL (1.8-2.4); NON-HDL-C 120.9 MG/DL; POTASSIUM SERUM 4.8 MMOL/L (3.5-5.1); SODIUM LEVEL 138 MMOL/L (136-145); THYROID STIMULATING HORMONE 2.398 uIU/ML (0.55-4.78); TOTAL PROTEIN 6.6 G/DL (5.7-8.2); TRIGLYCERIDES LEVEL 166 MG/DL (<150)
[2024-06-24 13:44] LABS: FREE T4 1.13 NG/DL (0.89-1.76)
[2024-06-24 14:03] LABS: HEMOGLOBIN A1c 5.8 % (4.0-6.0)
== END ==
LOC: M PLALAB 09:15
PROVIDERS: ATTEND Nurse Practitioner Adult Health
DX: Z00.00 Encounter for general adult medical examination without abnormal findings (principal); R73.01 Impaired fasting glucose; I10 Essential (primary) hypertension; Z86.39 Personal history of other endocrine, nutritional and metabolic disease; Z85.3 Personal history of malignant neoplasm of breast

== ENCOUNTER → 2025-06-22 | Outpatient (CLI) | payer MEDICARE ==
[~2025-06-22] MED LIST changes: +LISI40TA10 PO; -LISI40TA4 PO
[2025-06-22 15:10] LABS: ALT/SGPT 18.0 U/L (7.0-40); AST/SGOT 14.0 U/L (<34); CALCIUM LEVEL 9.3 MG/DL (8.3-10.6); CARBON DIOXIDE LEVEL 22.0 MMOL/L (20-31); CHLORIDE LEVEL 110.0 MMOL/L (98-107); CHOLESTEROL LEVEL 139.0 MG/DL (<200); CHOLESTEROL RISK RATIO 2.78 (<5); CREATININE FOR GFR 1.4 MG/DL (0.55-1.30); GLOMERULAR FILTRATION RATE 36.2 (>32); LDL CHOLESTEROL 68.5 MG/DL (<100); MAGNESIUM LEVEL 1.8 MG/DL (1.8-2.4); NON-HDL-C 89.1 MG/DL; POTASSIUM SERUM 4.5 MMOL/L (3.5-5.1); SODIUM LEVEL 145.0 MMOL/L (136-145); TRIGLYCERIDES LEVEL 103.0 MG/DL (<150)
[2025-06-22 15:12] LABS: FREE T4 1.25 NG/DL (0.89-1.76)
[2025-06-22 15:23] LABS: ESTIMATED AVERAGE GLUCOSE 126.0 MG/DL (60-110)
== END ==
LOC: M PLALAB 11:44
PROVIDERS: ATTEND Nurse Practitioner Adult Health
DX: R73.01 Impaired fasting glucose (principal); I10 Essential (primary) hypertension; Z86.39 Personal history of other endocrine, nutritional and metabolic disease